=== PATIENT | male | born 1940 | race Caucasian/White ===

== ENCOUNTER → 2017-02-26 | Outpatient (CLI) | payer MEDICARE ==
[~2017-02-26] MED LIST: ASPI-1012 PO; ASPI-1181 PO; DONE5TAB33 PO; GABA-529 PO; GLIM4TAB3 PO; HYDR-309 PO; HYDR25TA PO; LEVO50TA11 PO; LISI2.5T2 PO; METF10004 PO; METF500T6 PO; PIOG15TA66 PO
== END | disposition home or self-care (01) ==
LOC: RAH 15:42
PROVIDERS: ATTEND Internal Medicine
DX: Z01.818 Encounter for other preprocedural examination (principal); I10 Essential (primary) hypertension
CPT/HCPCS: 71046

== ENCOUNTER 2017-03-06 16:00 | Inpatient (IN) | payer MEDICARE ==
[~2017-03-06] VITALS: Ht 171.4 cm; Wt 81.6 kg
[2017-03-06 16:00] VITALS: BP 117/63
[2017-03-06 16:27] LABS: APPEARANCE,URINE Clear (CLEAR); BILIRUBIN,URINE Negative (NEGATIVE); COLOR,URINE Yellow (YELLOW); GLUCOSE, URINE (UA) 250 mg/dL (NEGATIVE); KETONES,URINE Negative (NEGATIVE); LEUKOCYTE ESTERASE ,URINE Negative (NEGATIVE); NITRATE,URINE Negative (NEGATIVE); OCCULT BLOOD,URINE Negative (NEGATIVE); PROTEIN,URINE Negative (NEGATIVE)
[2017-03-06 16:40] LABS: BACTERIA,URINE Rare /HPF (None Seen); RBC,URINE None Seen /HPF (0-1); WBC,URINE 0-1 /HPF (0-1)
[2017-03-06] MEDS ORDERED: METF10004 PO (17:08)
[2017-03-06] MEDS ORDERED: LISI2.5T2 PO (17:08)
[2017-03-06] MEDS ORDERED: GABA-529 PO (17:08)
[2017-03-06] MEDS ORDERED: METF500T6 PO (17:08)
[2017-03-06] MEDS ORDERED: PIOG15TA66 PO (17:08)
[2017-03-06] MEDS ORDERED: HYDR25TA PO (17:08)
[2017-03-06] MEDS ORDERED: ASPI-1181 PO (17:08)
[2017-03-06] MEDS ORDERED: DONE5TAB33 PO (17:08)
[2017-03-06] MEDS ORDERED: LEVO50TA11 PO (17:08)
[2017-03-06] MEDS ORDERED: GLIM4TAB3 PO (17:08)
[2017-03-09] VITALS (26 sets, daily range): BP systolic 111–179; BP diastolic 56–93
[2017-03-09] MEDS: CEFAZOLIN SODIUM 1 GM VIAL IVP SCH ×3 (06:00→20:19)
[2017-03-09] MEDS ORDERED: SODIUM CHLORIDE 0.9% 1000ML 1,000 ML IV ONE (11:45)
[2017-03-09] MEDS ORDERED: NEOSTIGMINE METHYLSULFATE 1MG/ML IV ONE (12:01)
[2017-03-09] MEDS ORDERED: ONDANSETRON HCL 4 MG/2 ML VIAL ONE (12:01)
[2017-03-09] MEDS ORDERED: LIDOCAINE PF 2% 5ML ABBOJECT ONE (12:01)
[2017-03-09] MEDS ORDERED: DEXAMETHASONE SOD PHOSPHATE 10MG/ML 1ML VIAL ONE (12:01)
[2017-03-09] MEDS ORDERED: SUCCINYLCHOLINE 200MG/10ML SYR ONE (12:01)
[2017-03-09] MEDS ORDERED: ACETAMINOPHEN EXTRA STRENGTH 500 MG TABLET ONE (12:02)
[2017-03-09] MEDS ORDERED: KETOROLAC TROMETHAMINE 15MG/ML ONE (12:02)
[2017-03-09] MEDS ORDERED: OXYCODONE HCL 10 MG TAB.SR.12H PO ONE (12:03)
[2017-03-09] MEDS ORDERED: CELECOXIB 200 MG CAP ONE (12:03)
[2017-03-09] MEDS ORDERED: PROPOFOL 10 MG/ML 20ML VIAL IV ONE ×2 (12:04→16:02)
[2017-03-09] MEDS ORDERED: MIDAZOLAM HCL 1 MG/ML 2ML VIAL ONE (12:04)
[2017-03-09] MEDS ORDERED: FENTANYL CITRATE PF 50 MCG/1 ML 2ML VIAL ONE (12:04)
[2017-03-09] MEDS ORDERED: CEFAZOLIN SODIUM 1 GM VIAL ONE (12:38)
[2017-03-09] MEDS ORDERED: TRANEXAMIC ACID 1000MG/10ML IV ONE (12:39)
[2017-03-09] MEDS ORDERED: EPHEDRINE SULFATE 50 MG/ML AMPULE ONE (13:49)
[2017-03-09] MEDS ORDERED: KETOROLAC TROMETHAMINE 15MG/ML IV PRN (15:30)
[2017-03-09] MEDS ORDERED: POTASSIUM CHLORIDE 10% ELIXIR 20 MEQ/15 ML UDCUP PO PRN (15:30)
[2017-03-09] MEDS ORDERED: PROMETHAZINE HCL 25 MG/ML 1ML AMPULE IM PRN (15:30)
[2017-03-09] MEDS: ACETAMINOPHEN 325 MG TAB PO SCH ×2 (15:30→20:20)
[2017-03-09] MEDS ORDERED: TEMAZEPAM 15 MG CAPSULE PO PRN (15:30)
[2017-03-09] MEDS ORDERED: DiphenhydrAMINE HCL 50 MG/ML VIAL IVP PRN (15:30)
[2017-03-09] MEDS ORDERED: DIPHENHYDRAMINE HCL 25 MG CAPSULE PO PRN (15:30)
[2017-03-09] MEDS ORDERED: FERROUS FUMARATE 324 MG TABLET PO PRN (15:30)
[2017-03-09] MEDS ORDERED: POTASSIUM CHLORIDE 20MEQ/100ML 100 ML IV PRN (15:30)
[2017-03-09] MEDS ORDERED: CALCIUM CARBONATE 500 MG TABLET PO PRN (15:30)
[2017-03-09] MEDS ORDERED: OXYCODONE HCL 5 MG TAB PO PRN ×2 (15:30)
[2017-03-09] MEDS ORDERED: LIDOCAINE HCL-MPF 1% 2ML VIAL IVP PRN (15:30)
[2017-03-09] MEDS: INSULIN HUMULIN R 100 UNIT/ML 3ML SQ SCH ×2 (16:30→21:00)
[2017-03-09] MEDS ORDERED: RACEPINEPHRINE HCL 2.25% 0.5 ML NEB SOLN ONE (16:33)
[2017-03-09] MEDS: SODIUM CHLORIDE 0.9% 1000ML 1,000 ML IV SCH (18:33)
[2017-03-09] MEDS: METFORMIN HCL 500 MG TABLET PO SCH (19:14)
[2017-03-09] MEDS: ASPIRIN 325 MG TABLET PO SCH (20:19)
[2017-03-09] MEDS: LISINOPRIL 2.5 MG TABLET PO SCH (20:19)
[2017-03-09] MEDS: PIOGLITAZONE HCL 15 MG TAB PO SCH (20:19)
[2017-03-09] MEDS: CELECOXIB 200 MG CAP PO SCH (20:19)
[2017-03-09] MEDS: DONEPEZIL HCL 5 MG TAB PO SCH (20:19)
[2017-03-09] MEDS: FAMOTIDINE 20MG TAB 20 MG TAB PO SCH (20:19)
[2017-03-09] MEDS ORDERED: CEFAZOLIN 2GM / 50 ML 50 ML IV SCH (20:30)
[2017-03-10] VITALS: BP 120/70
[2017-03-10] MEDS: SODIUM CHLORIDE 0.9% 1000ML 1,000 ML IV SCH ×2 (02:16→11:30)
[2017-03-10] MEDS: CEFAZOLIN SODIUM 1 GM VIAL IVP SCH (03:10)
[2017-03-10] MEDS: ACETAMINOPHEN 325 MG TAB PO SCH ×4 (03:11→22:18)
[2017-03-10 04:00] VITALS: BP 108/57
[2017-03-10] MEDS: INSULIN HUMULIN R 100 UNIT/ML 3ML SQ SCH ×4 (05:49→20:41)
[2017-03-10 05:50] LABS: HEMATOCRIT 34.4 % (42-54); MEAN CORPUSCULAR HEMOGLOBIN 30.8 pg (27.0-33.0); MEAN CORPUSCULAR HGB CONC 33.8 g/dL (32.0-36.0); MEAN CORPUSCULAR VOLUME 91.1 fL (79-99); PLATELET COUNT (AUTO) 286 K/uL (130-400); RED BLOOD CELL COUNT(AUTO) 3.78 MIL/uL (4.50-6.20); RED CELL DISTRIBUTION WIDTH 13.2 % (11.0-15.5); WHITE BLOOD COUNT (AUTO) 11.7 K/uL (4.8-10.8)
[2017-03-10 06:14] LABS: CREATININE 0.7 mg/dL (0.5-1.5); POTASSIUM 3.7 mmol/L (3.5-5.1)
[2017-03-10 07:39] VITALS: BP 102/55
[2017-03-10] MEDS: LISINOPRIL 2.5 MG TABLET PO SCH ×3 (08:14→20:22)
[2017-03-10] MEDS: METFORMIN HCL 500 MG TABLET PO SCH ×2 (08:15→17:34)
[2017-03-10] MEDS: FAMOTIDINE 20MG TAB 20 MG TAB PO SCH ×2 (08:15→20:22)
[2017-03-10] MEDS: CELECOXIB 200 MG CAP PO SCH ×2 (08:15→20:22)
[2017-03-10] MEDS: ASPIRIN 325 MG TABLET PO SCH ×2 (08:15→20:22)
[2017-03-10] MEDS: GLIMEPIRIDE 2 MG TABLET PO SCH ×2 (08:15→17:34)
[2017-03-10] MEDS: TAMSULOSIN HCL 0.4 MG CAP.ER.24H PO SCH (08:16)
[2017-03-10] MEDS: POLYETHYLENE GLYCOL 3350 17 GM POWD.PACK PO SCH (08:16)
[2017-03-10] MEDS: TRAMADOL HCL 50 MG TABLET PO PRN (08:22)
[2017-03-10] MEDS: HYDROCHLOROTHIAZIDE 25 MG TABLET PO SCH (09:00)
[2017-03-10 11:26] VITALS: BP 108/57
[2017-03-10] MEDS: PSYLLIUM SEED 1 EACH PACKET PO SCH ×2 (12:00→12:49)
[2017-03-10] MEDS: GABAPENTIN 100 MG CAPSULE PO SCH ×2 (12:49→17:43)
[2017-03-10 16:20] VITALS: BP 116/59
[2017-03-10] MEDS: LEVOTHYROXINE 50 MCG TABLET PO SCH (17:34)
[2017-03-10 20:00] VITALS: BP 118/56
[2017-03-10] MEDS: DONEPEZIL HCL 5 MG TAB PO SCH (20:22)
[2017-03-10] MEDS: PIOGLITAZONE HCL 15 MG TAB PO SCH (20:22)
[2017-03-11] VITALS: BP 125/64
[2017-03-11 04:00] VITALS: BP 115/62
[2017-03-11 04:02] LABS: HEMATOCRIT 36.8 % (42-54); MEAN CORPUSCULAR HEMOGLOBIN 31.6 pg (27.0-33.0); MEAN CORPUSCULAR HGB CONC 34.6 g/dL (32.0-36.0); MEAN CORPUSCULAR VOLUME 91.5 fL (79-99); PLATELET COUNT (AUTO) 299 K/uL (130-400); RED BLOOD CELL COUNT(AUTO) 4.02 MIL/uL (4.50-6.20); RED CELL DISTRIBUTION WIDTH 13.1 % (11.0-15.5); WHITE BLOOD COUNT (AUTO) 13.1 K/uL (4.8-10.8)
[2017-03-11 04:09] LABS: CREATININE 0.9 mg/dL (0.5-1.5); POTASSIUM 3.7 mmol/L (3.5-5.1)
[2017-03-11] MEDS: ACETAMINOPHEN 325 MG TAB PO SCH ×4 (04:26→19:16)
[2017-03-11] MEDS: INSULIN HUMULIN R 100 UNIT/ML 3ML SQ SCH ×4 (06:31→20:54)
[2017-03-11 07:52] VITALS: BP 104/53
[2017-03-11] MEDS: LISINOPRIL 2.5 MG TABLET PO SCH ×2 (09:08→20:25)
[2017-03-11] MEDS: GLIMEPIRIDE 2 MG TABLET PO SCH ×2 (09:08→18:57)
[2017-03-11] MEDS: HYDROCHLOROTHIAZIDE 25 MG TABLET PO SCH (09:08)
[2017-03-11] MEDS: ASPIRIN 325 MG TABLET PO SCH ×2 (09:08→20:25)
[2017-03-11] MEDS: POLYETHYLENE GLYCOL 3350 17 GM POWD.PACK PO SCH (09:08)
[2017-03-11] MEDS: FAMOTIDINE 20MG TAB 20 MG TAB PO SCH ×2 (09:08→20:24)
[2017-03-11] MEDS: CELECOXIB 200 MG CAP PO SCH ×2 (09:09→20:25)
[2017-03-11] MEDS: METFORMIN HCL 500 MG TABLET PO SCH ×2 (09:09→16:53)
[2017-03-11] MEDS: TAMSULOSIN HCL 0.4 MG CAP.ER.24H PO SCH (09:09)
[2017-03-11] MEDS: TRAMADOL HCL 50 MG TABLET PO PRN (09:10)
[2017-03-11 11:53] VITALS: BP 119/58
[2017-03-11] MEDS: PSYLLIUM SEED 1 EACH PACKET PO SCH (12:18)
[2017-03-11] MEDS: GABAPENTIN 100 MG CAPSULE PO SCH ×2 (12:18→16:53)
[2017-03-11] MEDS: POTASSIUM CHLORIDE 20 MEQ ERTAB PO PRN (13:53)
[2017-03-11] MEDS ORDERED: BISACODYL 5 MG TABLET.DR PO PRN (15:30)
[2017-03-11 16:13] VITALS: BP 102/56
[2017-03-11] MEDS: LEVOTHYROXINE 50 MCG TABLET PO SCH (16:53)
[2017-03-11 20:00] VITALS: BP 98/52
[2017-03-11] MEDS: PIOGLITAZONE HCL 15 MG TAB PO SCH (20:24)
[2017-03-11] MEDS: DONEPEZIL HCL 5 MG TAB PO SCH (20:25)
[2017-03-12] VITALS: BP 123/58
[2017-03-12] MEDS: ACETAMINOPHEN 325 MG TAB PO SCH ×3 (03:36→17:37)
[2017-03-12 04:00] VITALS: BP 122/68
[2017-03-12] MEDS: INSULIN HUMULIN R 100 UNIT/ML 3ML SQ SCH ×3 (05:49→16:30)
[2017-03-12 06:06] LABS: HEMATOCRIT 33.4 % (42-54); MEAN CORPUSCULAR HEMOGLOBIN 32.2 pg (27.0-33.0); MEAN CORPUSCULAR HGB CONC 35.6 g/dL (32.0-36.0); MEAN CORPUSCULAR VOLUME 90.4 fL (79-99); NUCLEATED RED BLOOD CELLS 0.1 % (0.0-0.19); PLATELET COUNT (AUTO) 283 K/uL (130-400); RED BLOOD CELL COUNT(AUTO) 3.69 MIL/uL (4.50-6.20); RED CELL DISTRIBUTION WIDTH 13.1 % (11.0-15.5); WHITE BLOOD COUNT (AUTO) 9.4 K/uL (4.8-10.8)
[2017-03-12 06:17] LABS: CREATININE 0.7 mg/dL (0.5-1.5); POTASSIUM 3.4 mmol/L (3.5-5.1)
[2017-03-12] MEDS: POTASSIUM CHLORIDE 20 MEQ ERTAB PO PRN ×2 (06:33→08:51)
[2017-03-12 07:47] VITALS: BP 109/66
[2017-03-12] MEDS: POLYETHYLENE GLYCOL 3350 17 GM POWD.PACK PO SCH (08:50)
[2017-03-12] MEDS: LISINOPRIL 2.5 MG TABLET PO SCH (08:50)
[2017-03-12] MEDS: ASPIRIN 325 MG TABLET PO SCH (08:50)
[2017-03-12] MEDS: CELECOXIB 200 MG CAP PO SCH (08:50)
[2017-03-12] MEDS: HYDROCHLOROTHIAZIDE 25 MG TABLET PO SCH (08:50)
[2017-03-12] MEDS: FAMOTIDINE 20MG TAB 20 MG TAB PO SCH (08:50)
[2017-03-12] MEDS: METFORMIN HCL 500 MG TABLET PO SCH ×2 (08:50→17:37)
[2017-03-12] MEDS: GLIMEPIRIDE 2 MG TABLET PO SCH ×2 (08:51→17:38)
[2017-03-12] MEDS: TAMSULOSIN HCL 0.4 MG CAP.ER.24H PO SCH (08:57)
[2017-03-12 11:44] VITALS: BP 111/52
[2017-03-12] MEDS: PSYLLIUM SEED 1 EACH PACKET PO SCH ×2 (12:00→12:07)
[2017-03-12] MEDS: GABAPENTIN 100 MG CAPSULE PO SCH ×2 (12:03→17:37)
[2017-03-12] MEDS ORDERED: ASPI-1012 PO (13:29)
[2017-03-12] MEDS ORDERED: HYDR-309 PO (13:29)
[2017-03-12] MEDS ORDERED: BISACODYL 10 MG SUPP.RECT RC PRN (15:30)
[2017-03-12] MEDS: LEVOTHYROXINE 50 MCG TABLET PO SCH (17:37)
== END 2017-03-12 20:00 | DRG 470 ==
LOC: DAHIP 03-09 11:31 → 4AH 03-09 16:47
PROVIDERS: ADMIT Orthopaedic Surgery; ATTEND Orthopaedic Surgery
PROC: 0SRB0JZ Replacement of Left Hip Joint with Synthetic Substitute, Open Approach (ICD-10-PCS; principal; 2017-03-09 14:00)
DX: M16.12 Unilateral primary osteoarthritis, left hip (principal); E11.9 Type 2 diabetes mellitus without complications; E03.9 Hypothyroidism, unspecified; I10 Essential (primary) hypertension; G89.29 Other chronic pain; Z98.42 Cataract extraction status, left eye; Z98.41 Cataract extraction status, right eye
CPT/HCPCS: 36415; 73503; 80048; 81001; 82948; 85027; 88304; 88311; 94640; A4218; J0330; J0690; J1100; J1885; J2001; J2250; J2405; J2704; J2710; J3010; J3490; J7030

== ENCOUNTER → 2018-08-19 | Outpatient (CLI) | payer MEDICARE ==
[~2018-08-19] MED LIST changes: -ASPI-1181 PO; -HYDR-309 PO; +HYDR-4457 PO; +METF-444 PO; +METF-446 PO; -METF10004 PO; -METF500T6 PO
== END | disposition home or self-care (01) ==
LOC: RAH 14:54
PROVIDERS: ATTEND Internal Medicine
DX: Z01.818 Encounter for other preprocedural examination (principal); I10 Essential (primary) hypertension; M47.819 Spondylosis without myelopathy or radiculopathy, site unspecified; M41.9 Scoliosis, unspecified
CPT/HCPCS: 71046

== ENCOUNTER 2018-09-15 12:00 | Inpatient (IN) | payer MEDICARE ==
[~2018-09-15] VITALS: Ht 172.7 cm; Wt 77.5 kg
[~2018-09-15 12:00] MED LIST changes: -ASPI-1012 PO; -GABA-529 PO; -HYDR-4457 PO; -HYDR25TA PO; -LISI2.5T2 PO; -METF-444 PO; -METF-446 PO; -PIOG15TA66 PO
[2018-09-15 15:52] VITALS: BP 100/50
[2018-09-15] MEDS ORDERED: DEXTROSE 5%-LACTATED RINGERS 1,000 ML IV SCH (16:00)
[2018-09-15] MEDS ORDERED: LISI2.5T2 PO (16:13)
[2018-09-15] MEDS ORDERED: GABA-531 PO (16:13)
[2018-09-16] VITALS (22 sets, daily range): BP systolic 74–131; BP diastolic 37–80
[2018-09-16] MEDS: GENTAMICIN 80 MG/NS 100 ML PB 100 ML IV SCH ×3 (06:00→20:01)
[2018-09-16] MEDS ORDERED: CEFAZOLIN SODIUM 1 GM VIAL IVP SCH (06:00)
[2018-09-16] MEDS ORDERED: SODIUM CHLORIDE 0.9% 1000ML 1,000 ML IV ONE (10:42)
[2018-09-16] MEDS ORDERED: NEOSTIGMINE 5MG/5ML SYR IV ONE (10:49)
[2018-09-16] MEDS ORDERED: MIDAZOLAM HCL 1 MG/ML 2ML VIAL ONE (10:49)
[2018-09-16] MEDS ORDERED: LIDOCAINE PF 2% 5ML ABBOJECT ONE (10:49)
[2018-09-16] MEDS ORDERED: GLYCOPYRROLATE 1 MG/5 ML SYRINGE ONE (10:49)
[2018-09-16] MEDS ORDERED: PROPOFOL 10 MG/ML 20ML VIAL IV ONE (10:49)
[2018-09-16] MEDS ORDERED: DEXAMETHASONE SOD PHOSPHATE 10MG/ML 1ML VIAL ONE (10:49)
[2018-09-16] MEDS ORDERED: SUCCINYLCHOLINE 200MG/10ML SYR ONE (10:49)
[2018-09-16] MEDS ORDERED: FENTANYL CITRATE PF 50 MCG/1 ML 2ML VIAL ONE (10:50)
[2018-09-16] MEDS ORDERED: ONDANSETRON HCL 4 MG/2 ML VIAL ONE (10:50)
[2018-09-16] MEDS ORDERED: ROCURONIUM 10MG/1ML SYR 10 MG/ML ML ONE (10:56)
[2018-09-16] MEDS ORDERED: ROPIVACAINE 0.5% 5MG/ML 30ML IJ ONE (10:57)
[2018-09-16] MEDS ORDERED: ASPI-555 PO (11:27)
[2018-09-16] MEDS ORDERED: METF-446 PO (11:27)
[2018-09-16] MEDS ORDERED: TRANEXAMIC ACID 1000MG/10ML IV ONE (11:46)
[2018-09-16] MEDS ORDERED: LIDOCAINE HCL 4% LTA SOL 4 ML VIAL ONE (14:15)
[2018-09-16] MEDS ORDERED: MEPERIDINE-PF 25 MG/ML SYG ONE (14:56)
[2018-09-16 15:19] LABS: HEMATOCRIT 35.2 % (42-54)
[2018-09-16] MEDS ORDERED: LACTATED RINGERS 1000ML 1,000 ML IV SCH (15:45)
[2018-09-16] MEDS ORDERED: GENTAMICIN 80 MG/NS 100 ML PB 100 ML IV SCH (15:45)
[2018-09-16] MEDS ORDERED: PROMETHAZINE HCL 25 MG/ML 1ML AMPULE IM PRN (15:45)
[2018-09-16] MEDS ORDERED: MORPHINE SULFATE 10 MG/ML 1ML SYG IM PRN (15:45)
[2018-09-16] MEDS ORDERED: BISACODYL 10 MG SUPP.RECT RC PRN (15:45)
[2018-09-16] MEDS ORDERED: MAGNESIUM HYDROXIDE 30 ML/UDCUP PO PRN (15:45)
--- NOTE | 2018-09-16 16:45 | NUR ---
ATTEMPTED AMBULATION PATIENT IS DROWSY. ATTEMPTED AMBULATION BUT UNABLE TO FULLY AWAKEN PATIENT FOR AMBULATION. WILL TRY AGAIN LATER.
[2018-09-16] MEDS: CEFAZOLIN SODIUM 1 GM VIAL IVP SCH (17:20)
[2018-09-16] MEDS ORDERED: MORPHINE SULFATE 4 MG/1ML SYG IV PRN (18:00)
[2018-09-16] MEDS: GLIMEPIRIDE 2 MG TABLET PO SCH (18:35)
[2018-09-16] MEDS ORDERED: DEXTROSE 50%-WATER 50 ML DISP.SYRIN IV PRN (18:45)
[2018-09-16] MEDS ORDERED: GLUCAGON 1MG KIT 1 MG ML IM PRN (18:45)
[2018-09-16] MEDS: METFORMIN HCL 500 MG TABLET PO SCH (20:01)
[2018-09-16] MEDS: LISINOPRIL 2.5 MG TABLET PO SCH (20:01)
[2018-09-16] MEDS: GABAPENTIN 300 MG CAPSULE PO SCH (20:02)
[2018-09-16] MEDS: DONEPEZIL HCL 5 MG TAB PO SCH (20:02)
[2018-09-16] MEDS: INSULIN HUMULIN R 100 UNIT/ML 3ML SQ SCH (20:07)
[2018-09-16] MEDS: ACETAMINOPHEN-CODEINE 300/30MG TAB PO PRN (20:08)
[2018-09-17] VITALS (8 sets, daily range): BP systolic 86–124; BP diastolic 40–67
[2018-09-17] MEDS: CEFAZOLIN SODIUM 1 GM VIAL IVP SCH ×2 (02:18→09:37)
[2018-09-17 02:21] LABS: HEMATOCRIT 36.9 % (42-54)
[2018-09-17] MEDS: GENTAMICIN 80 MG/NS 100 ML PB 100 ML IV SCH ×2 (04:29→13:44)
[2018-09-17 06:09] LABS: HEMATOCRIT 35.5 % (42-54)
[2018-09-17] MEDS: ACETAMINOPHEN-CODEINE 300/30MG TAB PO PRN ×3 (06:24→21:12)
[2018-09-17] MEDS: INSULIN HUMULIN R 100 UNIT/ML 3ML SQ SCH ×2 (06:31→16:30)
--- NOTE | 2018-09-17 07:45 | NUR ---
Pt assisted up to chair by physical therapist, eating breakfast. Routine vitals taken, BP is 86/40. Pt offers no complaints, but stated feels "a little weak" when questioned. Pt assisted safely back to bed. Call light and bedside table in easy reach.
--- NOTE | 2018-09-17 07:55 | NUR ---
Manual recheck of BP was 104/56. Pt resting in bed, no acute distress.
[2018-09-17] MEDS ORDERED: LEVO50TA11 PO (08:45)
[2018-09-17] MEDS ORDERED: MORPHINE SULFATE 2 MG/ML 1ML SYG IVP PRN (09:30)
[2018-09-17] MEDS ORDERED: SODIUM CHLORIDE 0.9% 500ML 500 ML IV SCH (09:30)
[2018-09-17] MEDS ORDERED: SODIUM CHLORIDE 0.9% 500ML 500 ML IV ONE (09:30)
[2018-09-17] MEDS: METFORMIN HCL 500 MG TABLET PO SCH ×3 (09:36→21:04)
[2018-09-17] MEDS: GLIMEPIRIDE 2 MG TABLET PO SCH ×3 (09:36→16:50)
[2018-09-17] MEDS: GABAPENTIN 300 MG CAPSULE PO SCH ×3 (09:37→21:04)
[2018-09-17] MEDS: MORPHINE SULFATE 2 MG/ML 1ML SYG IVP PRN ×2 (09:39→13:52)
[2018-09-17] MEDS ORDERED: POTASSIUM CHLORIDE 20MEQ/100ML 100 ML IV PRN (10:30)
[2018-09-17] MEDS ORDERED: POTASSIUM CHLORIDE 10% ELIXIR 20 MEQ/15 ML UDCUP PO PRN (10:30)
[2018-09-17] MEDS ORDERED: POTASSIUM CHLORIDE 20 MEQ ERTAB PO PRN (10:30)
[2018-09-17] MEDS ORDERED: LIDOCAINE HCL-MPF 1% 2ML VIAL IVP PRN (10:30)
--- NOTE | 2018-09-17 11:00 | NUR ---
INITIAL Met w patient alone, s/p TKA, aaox3, lives w spouse, no stairs at home, has a std walker, understands will need CPM and 3 in 1 chair. Anticipate DC in AM, no concerns voiced, [facility]/choice for fr[employer]ico [place] sent, call back from [facility] re payment arrangements for 04/09 chair & basket, referred back to patient to contact directly. Addendum: 09/17/18 at 1411 by DAT MCCRACKEN RN CM Amended: Links added.
[2018-09-17] MEDS: SODIUM CHLORIDE 0.9% 500ML 500 ML IV SCH ×2 (11:30→12:00)
[2018-09-17] MEDS: PANTOPRAZOLE SODIUM 40 MG TABLET.DR PO SCH (12:16)
[2018-09-17] MEDS: RIVAROXABAN 10 MG TABLET PO SCH (12:16)
[2018-09-17] MEDS: SODIUM CHLORIDE 0.9% 1000ML 1,000 ML IV SCH ×2 (12:16→21:03)
--- NOTE | 2018-09-17 12:21 | NUR ---
0900 SCHEDULED MEDICATIONS GIVEN AT PRESENT. PT HAD NOT WANTED EARLIER HE WAS ON CPM MACHINE AND WAS IN PAIN. OPTED TO WAIT UNTIL LATER.
[2018-09-17] MEDS ORDERED: LEVOTHYROXINE 50 MCG TABLET PO SCH ×2 (16:30→21:00)
[2018-09-17] MEDS: LISINOPRIL 2.5 MG TABLET PO SCH (21:04)
[2018-09-17] MEDS: DONEPEZIL HCL 5 MG TAB PO SCH (21:04)
--- NOTE | 2018-09-17 22:45 | NUR ---
AUTOTRANSFUSION DISCONTINUED PATIENT AWAKE AND ALERT, AUTOTRANSFUSION DISCONTINUED. PATIENT TOLERATED WELL. MEDICATED PER HEIDE WITH MORPHINE FOR PAIN. RESP EVEN AND UNLABORED. NO SOB NOTED. ON ROOM AIR. NO ACTIVE BLEEDING NOTED. VITALS STABLE. AFEBRILE. TOLERATING IVF WELL. NO NAUSEA OR VOMITING NOTED. VOIDING WITHOUT DIFFICULTY, USES URINAL. WALKER AT BEDSIDE. FALL PRECAUTIONS IN PLACE DUE TO POOR SAFETY AWARENESS. CALL LIGHT WITHIN REACH. WILL CONTINUE TO BE OBSERVED. Addendum: 09/18/18 at 0738 by POOJA STORY RN RN Amended: Links added.
[2018-09-18] MEDS: SODIUM CHLORIDE 0.9% 1000ML 1,000 ML IV SCH ×2 (01:07→05:25)
[2018-09-18 03:58] LABS: HEMATOCRIT 33.4 % (42-54); MEAN CORPUSCULAR HEMOGLOBIN 30.2 pg (27.0-33.0); MEAN CORPUSCULAR HGB CONC 33.8 g/dL (32.0-36.0); MEAN CORPUSCULAR VOLUME 89.5 fL (79-99); PLATELET COUNT (AUTO) 233 K/uL (130-400); RED BLOOD CELL COUNT(AUTO) 3.73 MIL/uL (4.50-6.20); RED CELL DISTRIBUTION WIDTH 13.9 % (11.0-15.5); WHITE BLOOD COUNT (AUTO) 11.1 K/uL (4.8-10.8)
[2018-09-18 04:00] VITALS: BP 122/69
[2018-09-18 04:08] LABS: CREATININE 0.8 mg/dL (0.5-1.5); POTASSIUM 3.7 mmol/L (3.5-5.1)
[2018-09-18] MEDS: ACETAMINOPHEN-CODEINE 300/30MG TAB PO PRN ×2 (05:25→12:20)
[2018-09-18] MEDS: INSULIN HUMULIN R 100 UNIT/ML 3ML SQ SCH (06:01)
[2018-09-18 07:40] VITALS: BP 115/65
[2018-09-18] MEDS: METFORMIN HCL 500 MG TABLET PO SCH (09:42)
[2018-09-18] MEDS: GLIMEPIRIDE 2 MG TABLET PO SCH (09:42)
[2018-09-18] MEDS: PANTOPRAZOLE SODIUM 40 MG TABLET.DR PO SCH (09:43)
[2018-09-18] MEDS: GABAPENTIN 300 MG CAPSULE PO SCH (09:43)
[2018-09-18] MEDS: RIVAROXABAN 10 MG TABLET PO SCH (09:43)
[2018-09-18 11:13] VITALS: BP 120/67
[2018-09-18] MEDS ORDERED: RIVA10TA PO (11:23)
[2018-09-18] MEDS ORDERED: TYL3 PO (11:23)
--- NOTE | 2018-09-18 13:39 | NUR ---
CPM AT 70 DEGREES BID TODAY. Addendum: 09/18/18 at 1342 by MARK SERRANO PT Amended: Links added.
[2018-09-18 16:40] VITALS: BP 127/72
--- NOTE | 2018-09-18 18:51 | NUR ---
DISCHARGE INSTRUCTIONS PROVIDED OVER THE PHONE WITH . DISCHARGE INSTRUCTIONS PROVIDED IN THE ROOM WITH PT. EMPHASIS ON DR BAEZ'S DISCHARGE ORDERS FOR ACTIVITY, AMBULATION, INCISION CARE, AND FOLLOW UP TREATMENT, WELL SIGNS AND SYMPTOMS TO MONITOR FOR AND WHEN TO SEEK EMERGENCY CARE VS DIAL 911. WRITTEN RX FOR TYLENOL #3 AND XARELTO GIVEN TO PT; EDUCATION PROVIDED FOR ROUTE, PURPOSE, SIDE EFFECTS AND ADVERSE EFFECTS. DRESSING TO LEFT KNEE CHANGED. INCISION ASYMPTOMATIC, SKIN EDGES WELL APPROXIMATED WITH 28 INTACT FRANCIS; NO ACTIVE DRAINAGE NOTED. PAINTED WITH BETADINE ORDERED, AND LONG LEG/STOCKINETTE DRESSING APPLIED, SECURED WITH TAPE. PIV REMOVED, TIP INTACT, DRESSED WITH STERILE 2X2 AND BAND AID AFTER HEMOSTASIS. PT WHEELED TO [facility]ONT [facility] BY [facility] STAFF FOR TRANSPORT HOME VIA PRIVATE CAR BY . PT IN STABLE CONDITION AT TIME OF DISCHARGE.
== END 2018-09-18 19:00 | disposition home or self-care (01) | DRG 470 ==
LOC: DAHIP 09-16 10:09 → 4AH 09-16 14:39 → 4BH 09-16 15:14 → 4AH 09-16 22:21
PROC: 0SRD0JA Replacement of Left Knee Joint with Synthetic Substitute, Uncemented, Open Approach (ICD-10-PCS; principal; 2018-09-16 12:10)
PROC: 3E0T3BZ Introduction of Anesthetic Agent into Peripheral Nerves and Plexi, Percutaneous Approach (ICD-10-PCS; 2018-09-16 12:10)
DX: M17.12 Unilateral primary osteoarthritis, left knee (principal); M21.162 Varus deformity, not elsewhere classified, left knee; E03.9 Hypothyroidism, unspecified; E11.22 Type 2 diabetes mellitus with diabetic chronic kidney disease; E11.51 Type 2 diabetes mellitus with diabetic peripheral angiopathy without gangrene; E78.2 Mixed hyperlipidemia; F03.90 Unspecified dementia, unspecified severity, without behavioral disturbance, psychotic disturbance, mood disturbance, and anxiety; I95.9 Hypotension, unspecified; I12.9 Hypertensive chronic kidney disease with stage 1 through stage 4 chronic kidney disease, or unspecified chronic kidney disease; N18.1 Chronic kidney disease, stage 1; Z96.642 Presence of left artificial hip joint; Z96.651 Presence of right artificial knee joint; Z79.84 Long term (current) use of oral hypoglycemic drugs; Z79.899 Other long term (current) drug therapy
CPT/HCPCS: 36415; 73560; 80048; 82948; 85014; 85018; 85027; 86850; 86900; 86901; 86922; 88304; 88311; 94760; 97039; A4344; A4606; G0378; J0330; J0690; J1100; J1580; J2001; J2175; J2250; J2405; J2704; J2710; J2795; J3010; J3490; J7030; J7040; J7120

== ENCOUNTER → 2023-08-27 | Outpatient (CLI) | payer MEDICARE ==
[~2023-08-27] MED LIST changes: +GABA-531 PO; -GLIM4TAB3 PO; +GLIM4TAB36 PO; +LIDOCAINE HCL 4% LTA SOL 4 ML VIAL TP ONE; +LISI2.5T13 PO; +METF-446 PO; +RIVA10TA PO; +TYL3 PO
== END | disposition home or self-care (01) ==
LOC: WHH 10:53
PROVIDERS: ATTEND Nurse Practitioner Family
DX: T25.322A Burn of third degree of left foot, initial encounter (principal); T31.0 Burns involving less than 10% of body surface; I70.203 Unspecified atherosclerosis of native arteries of extremities, bilateral legs; E11.51 Type 2 diabetes mellitus with diabetic peripheral angiopathy without gangrene; E11.22 Type 2 diabetes mellitus with diabetic chronic kidney disease; N18.9 Chronic kidney disease, unspecified; E03.9 Hypothyroidism, unspecified; E78.5 Hyperlipidemia, unspecified; F03.90 Unspecified dementia, unspecified severity, without behavioral disturbance, psychotic disturbance, mood disturbance, and anxiety; Z96.652 Presence of left artificial knee joint; X08.8XXA Exposure to other specified smoke, fire and flames, initial encounter; Y93.89 Activity, other specified; Y92.89 Other specified places as the place of occurrence of the external cause; Y99.8 Other external cause status
CPT/HCPCS: G0463; A4450